=== PATIENT | female | born 1970 | race Caucasian/White ===

== ENCOUNTER 2017-11-30 02:49 | Emergency (ER) | payer OTHER ==
[2017-11-30] MEDS ORDERED: EPINEPHrine 1 MG/ML SDV IM ONE (02:59)
[2017-11-30] MEDS ORDERED: diphenhydrAMINE 50 MG/ML SDV IVPUSH ONE (02:59)
[2017-11-30] MEDS ORDERED: methylPREDNISolone Sodium Succinate 125 MG/2 ML SDV IVPUSH ONE (02:59)
[2017-11-30] MEDS ORDERED: Acetaminophen 325 MG Tab PO ONE (03:07)
--- NOTE | 2017-11-30 06:15 | EDM.PDOC ---
ED HPI GENERAL MEDICAL PROBLEM - General Chief Complaint: Allergic Reaction Stated Complaint: POSSIBLE ALLERGIC REACTION TO MEDICATION Time Seen by Provider: 11/30/17 06:15 - History of Present Illness INITIAL COMMENTS - FREE TEXT/NARRATIVE: HISTORY AND PHYSICAL: History of present illness: Patient's 47-year-old female presents with a concern of rash(difficulty swallowing possible allergic reaction she states she's recently been on sulfa. Review of systems: As per history of present illness and below otherwise all systems reviewed and negative. Past medical history: As per history of present illness and as reviewed below otherwise noncontributory. Surgical history: As per history of present illness and as reviewed below otherwise noncontributory. Social history: No reported history of drug or alcohol abuse. Family history: As per history of present illness and as reviewed below otherwise noncontributory. Physical exam: HEENT: Atraumatic, normocephalic, pupils reactive, negative for conjunctival pallor or scleral icterus, mucous membranes moist, throat clear, neck supple, nontender, trachea midline. Lungs: Clear to auscultation, breath sounds equal bilaterally, chest nontender. Heart: S1S2, regular, negative for clicks, rubs, or JVD. Abdomen: Soft, nondistended, nontender. Negative for masses or hepatosplenomegaly. Negative for costovertebral tenderness. Pelvis: Stable nontender. Genitourinary: Deferred. Rectal: Deferred. Extremities: Atraumatic, negative for cords or calf pain. Neurovascular unremarkable. Neuro: Awake, alert, oriented. Cranial nerves II through XII unremarkable. Cerebellum unremarkable. Motor and sensory unremarkable throughout. Exam nonfocal. Skin maculopapular rash noted diffuse with urticarial component Diagnostics: None Therapeutics: Epi 0.3 IM Solu-Medrol 125 IV Benadryl 50 IV Impression: #1 acute allergic reaction Definitive disposition and diagnosis as appropriate pending reevaluation and review of above. - Related Data Allergies Allergy/AdvReac Type Severity Reaction Status Date / Time tetracycline Allergy Other Verified 11/30/17 02:58 Tetracyclines Allergy Cannot Verified 11/06/14 14:15 Remember Home Meds: Home Meds Levothyroxine 125 mcg PO ACBREAKFAST 11/06/14 [History] Past Medical History HEENT History: Reports: None Cardiovascular History: Reports: None Respiratory History: Reports: None Gastrointestinal History: Reports: None Genitourinary History: Reports: None ORTHOPAEDIC DOCTOR History: Reports: None Musculoskeletal History: Reports: None Neurological History: Reports: None Psychiatric History: Reports: None Endocrine/Metabolic History: Reports: None Dermatologic History: Reports: None - Infectious Disease History Infectious Disease History: Reports: Chicken Pox - Past Surgical History HEENT Surgical History: Reports: None Female Surgical History: Reports: None Social & Family History - Family History Family Medical History: Noncontributory - Tobacco Use Smoking Status *Q: Current Every Day Smoker Years of Tobacco use: 30 Packs/Tins Daily: 1 - Alcohol Use Days Per Week of Alcohol Use: 0 - Recreational Drug Use Recreational Drug Use: No ED ROS ALLERGIC REACTION - Review of Systems Review Of Systems: ROS reveals no pertinent complaints other than HPI. ED EXAM GENERAL NO PERIP PULSE - Physical Exam Exam: See Below Course - Vital Signs Last Recorded V/S: Last Vital Signs Temp 37.1 C 11/30/17 02:49 Pulse 78 11/30/17 05:30 Resp 18 11/30/17 05:30 BP 100/60 11/30/17 05:30 Pulse Ox 97 11/30/17 05:30 - Orders/Labs/Meds Meds: Medications Discontinued Medications Generic Name Dose Route Start Last Admin Trade Name Doeq PRN Reason Stop Dose Admin Acetaminophen 650 mg 11/30/17 03:07 11/30/17 03:16 Tylenol PO 11/30/17 03:08 650 mg NOW ONE Administration Diphenhydramine HCl 25 mg 11/30/17 02:59 11/30/17 03:06 Benadryl IVPUSH 11/30/17 03:00 25 mg ONETIME ONE Administration Epinephrine HCl 0.3 mg 11/30/17 02:59 11/30/17 03:07 Adrenalin IM 11/30/17 03:00 0.3 mg ONETIME ONE Administration Methylprednisolone Sodium Succinate 125 mg 11/30/17 02:59 11/30/17 03:06 Solu-Medrol IVPUSH 11/30/17 03:00 125 mg ONETIME ONE Administration Departure - Departure Time of Disposition: 06:13 Disposition: Home, Self-Care 01 Condition: Good Clinical Impression: Acute allergic reaction - Discharge Information Referrals: PCP,None [Primary Care Provider] - Additional Instructions: The following information is given to patients seen in the emergency department who are being discharged to home. This information is to outline your options for follow-up care. We provide all patients seen in our emergency department with a follow-up referral. The need for follow-up, as well as the timing and circumstances, are variable depending upon the specifics of your emergency department visit. If you don't have a primary care physician on staff, we will provide you with a referral. We always advise you to contact your personal physician following an emergency department visit to inform them of the circumstance of the visit and for follow-up with them and/or the need for any referrals to a consulting specialist. The emergency department will also refer you to a specialist when appropriate. This referral assures that you have the opportunity for followup care with a specialist. All of these measure are taken in an effort to provide you with optimal care, which includes your followup. Under all circumstances we always encourage you to contact your private physician who remains a resource for coordinating your care. When calling for followup care, please make the office aware that this follow-up is from your recent emergency room visit. If for any reason you are refused follow-up, please contact the [facility] emergency department at and asked to speak to the emergency department charge nurse. Avoid sulfa medication Benadryl as directed EpiPen is prescribed follow-up primary medical doctor return as needed as discussed
[2017-11-30 06:33] VITALS: BP 100/58
== END 2017-11-30 06:25 | disposition home or self-care (01) ==
LOC: MW.ED 02:49
DX: L27.0 Generalized skin eruption due to drugs and medicaments taken internally (principal); T37.0X5A Adverse effect of sulfonamides, initial encounter; F17.210 Nicotine dependence, cigarettes, uncomplicated; Z88.1 Allergy status to other antibiotic agents
CPT/HCPCS: 96372; 96374; 96375; 99283; A9270; J0171; J1200; J2930